=== PATIENT | female | born 1985 | race Hispanic/Latino ===

== ENCOUNTER 2021-02-09 20:54 | Inpatient (IN) | payer BC ==
[~2021-02-09 20:54] MED LIST: Bupivacaine 0.25% HCL 30 ML VIAL ONE; ePHEDrine Sulfate 50 MG/10 ML VIAL ONE
[2021-02-09 21:22] VITALS: BMI 33.3
[2021-02-09] MEDS ORDERED: hydrALAZINE 20 MG/ML VIAL SLOW IVP PRN (21:55)
[2021-02-09] MEDS ORDERED: Butorphanol Tartrate 1 MG/ML VIAL SLOW IVP PRN (21:55)
[2021-02-09] MEDS ORDERED: Ibuprofen 800 MG TAB PO PRN (21:55)
[2021-02-09] MEDS ORDERED: NS / Oxytocin 40 units/1000ml 1,000 ML IV PRN (21:55)
[2021-02-09] MEDS ORDERED: Misoprostol 200 MCG TAB PR PRN (21:55)
[2021-02-09] MEDS ORDERED: Ondansetron PF 4 MG/2 ML Vial IVP PRN ×2 (21:55→23:52)
[2021-02-09] MEDS ORDERED: Diphenoxylate HCl/Atropine Tablet PO PRN (21:55)
[2021-02-09] MEDS ORDERED: Carboprost 250 MCG/ML AMP IM PRN (21:55)
[2021-02-09] MEDS ORDERED: Promethazine HCl 25 MG/ML VIAL IM PRN ×2 (21:55→23:52)
[2021-02-09] MEDS ORDERED: Methylergonovine 0.2 MG/ML VIAL IM PRN (21:55)
[2021-02-09] MEDS ORDERED: Lidocaine 1% (PF) 30 ML VIAL SC PRN (21:55)
[2021-02-09] MEDS ORDERED: Penicillin G Potassium 5 MILL.UNITS in Sodium Chloride 0.9% 100 ML IVPB SCH (22:00)
[2021-02-09] MEDS ORDERED: NS w/ Oxytocin 30 units 500 ML IVPB SCH (22:00)
[2021-02-09] MEDS ORDERED: NS w/ Oxytocin 30 units 500 ML IV PRN (22:04)
[2021-02-09] MEDS: Lactated Ringer's 1,000 ML IV SCH (22:50)
[2021-02-09 23:02] LABS: Hemoglobin 13.1 g/dL (12.0-15.5); Mean Corpuscular Hemoglobin 27.8 pg (27.0-33.0); Mean Corpuscular Volume 84.3 fl (81.6-98.3); Mean Platelet Volume 12.5 fl (7.4-10.4); Platelet Count 212 10x3/uL (150-450); RBC Distribution Width 13.6 % (11.5-14.5); Red Blood Cell (RBC) Count 4.71 10x6/uL (3.90-5.03); White Blood Cell (WBC) Count 10.1 10x3/uL (3.5-10.5)
[2021-02-09] MEDS ORDERED: Fentanyl 4 mcg/Bup 0.1% Cadd 100 ML ONE (23:08)
[2021-02-09 23:35] LABS: Hep B Surf Ag Non-Reactive S/CO (NonReactive)
[2021-02-09 23:36] LABS: Syphilis Antibody Nonreactive (Nonreactive); Syphilis Antibody Index 0.05 S/CO (<1.00 Non-Reactive)
[2021-02-09 23:43] LABS: HBSAg Index 0.13 S/CO (0-0.99)
[2021-02-09] MEDS ORDERED: Communication Order-Pharmacy FS SCH (23:45)
[2021-02-09] MEDS ORDERED: Fentanyl 4 mcg/Bupivacaine 0.1% Cassette 100 ML EPIDURAL SCH (23:45)
[2021-02-09] MEDS ORDERED: Hydrocerin (Eucerin) Cream 120 gm Jar TOP PRN (23:52)
[2021-02-09] MEDS ORDERED: Acetaminophen 325 MG TAB PO PRN (23:52)
[2021-02-09] MEDS ORDERED: ePHEDrine 50 MG/ML VIAL SLOW IVP PRN (23:52)
[2021-02-09] MEDS ORDERED: Naloxone HCl 0.4 mg/ml Vial IVP PRN ×2 (23:52)
[2021-02-09] MEDS ORDERED: Lactated Ringer's 500 ML IV PRN (23:52)
[2021-02-09] MEDS ORDERED: diphenhydrAMINE 50 MG/ML VIAL IVP PRN (23:52)
[2021-02-10] MEDS: Penicillin G 2.5 MILL.units 2.5 MILL.UNITS in Premix Bag 1 BAG IVPB SCH ×2 (02:39→10:56)
[2021-02-10] MEDS ORDERED: hydrALAZINE 20 MG/ML VIAL SLOW IVP PRN (05:28)
[2021-02-10] MEDS ORDERED: Preparation H Ointment 28 GM TUBE PR PRN (05:28)
[2021-02-10] MEDS ORDERED: Benzocaine-Menthol 82.5 ML CAN TOP PRN (05:28)
[2021-02-10] MEDS ORDERED: Bisacodyl 10 MG SUPP PR PRN (05:28)
[2021-02-10] MEDS ORDERED: Milk Of Magnesia 30 ML UDCUP PO PRN (05:28)
[2021-02-10] MEDS ORDERED: Acetaminophen/Codeine 30-300mg Tablet PO PRN (05:28)
[2021-02-10] MEDS ORDERED: Adacel (T-DAP) 0.5 ML SYRINGE IM ONE (05:28)
[2021-02-10] MEDS ORDERED: Lanolin Ointment 7 GM TUBE TOP PRN (05:28)
[2021-02-10] MEDS ORDERED: Boostrix 0.5 ML (Tdap) VIAL IM ONE (05:45)
[2021-02-10] MEDS ORDERED: NS w/ Oxytocin 30 units 500 ML IV SCH (05:45)
[2021-02-10] MEDS: metFORMIN 500 MG TAB PO SCH ×2 (08:59→16:49)
[2021-02-10] MEDS ORDERED: Docusate Calcium (SURFAK) 240 MG CAP PO SCH (09:00)
[2021-02-10] MEDS: Lactated Ringer's 1,000 ML IV SCH (10:56)
[2021-02-10 15:23] VITALS: TEMP 98.1
[2021-02-10] MEDS ORDERED: Ketorolac Tromethamine 15 MG/ML VIAL ONE (16:34)
[2021-02-10 16:38] LABS: SARS-CoV-2 PCR by NAA Not Detected (NotDetected)
[2021-02-10 16:52] VITALS: BP 132/79
[2021-02-10] MEDS ORDERED: Glycopyrrolate 0.2 MG/ML 5 ML SYRINGE ONE (17:18)
== END 2021-02-10 17:23 | disposition home or self-care (01) | DRG 807 ==
LOC: CSHLD/OP 20:54 → CSHLD 21:55 → CSHPED 02-10 16:38
PROVIDERS: ADMIT Obstetrics & Gynecology; ATTEND Obstetrics & Gynecology
PROC: 10D07Z6 Extraction of Products of Conception, Vacuum, Via Natural or Artificial Opening (ICD-10-PCS; principal; 2021-02-10)
PROC: 0KQM0ZZ Repair Perineum Muscle, Open Approach (ICD-10-PCS; 2021-02-10)
DX: O24.12 Pre-existing type 2 diabetes mellitus, in childbirth (principal); Z37.0 Single live birth; E11.9 Type 2 diabetes mellitus without complications; O70.1 Second degree perineal laceration during delivery; O76 Abnormality in fetal heart rate and rhythm complicating labor and delivery; Z3A.37 37 weeks gestation of pregnancy; Z79.4 Long term (current) use of insulin
CPT/HCPCS: 36415; 36416; 51702; 85027; 86780; 86850; 86900; 86901; 87340; 87635; 99285; J1885; J2405; J2540; J2590; J3490; S0020; U0003; U0005